=== PATIENT | male | born 2000 ===

== ENCOUNTER 2020-07-02 20:10 | Emergency (ER) | payer SELFPAY ==
[2020-07-02 20:25] VITALS: BP 141/86; PULSE 111; RESP 18; TEMP 36.8; O2SAT 97; BMI 25.1
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
[2020-07-02 21:45] VITALS: BP 144/75; PULSE 103; RESP 26; O2SAT 95
[2020-07-02] MEDS: HYDROcodone-acetaminophen 7.5-325 mg Tablet 1 TAB PO (21:46)
[2020-07-02] MEDS: lidocaine 1% INJ 20 mL INTRADERMA (21:47)
== END 2020-07-02 22:23 | disposition home or self-care (01) ==
PROVIDERS: Emergency Provider Nurse Practitioner Family
DX: S01.81XA Laceration without foreign body of other part of head, initial encounter (principal); Y04.2XXA Assault by strike against or bumped into by another person, initial encounter
CPT/HCPCS: 12013; 12345; 29530; 70450; 70486; 73562; 99281; 99283; E0114